=== PATIENT | female | born 1930 | race Caucasian/White ===

== ENCOUNTER 2017-05-03 19:03 | Observation (INO) | payer OTHER ==
[2017-05-03] MEDS ORDERED: NS 500 ML IV ONE (19:26)
--- NOTE | 2017-05-03 19:26 | CPEKG ---
Heart Rate: 145 RR Interval: 414 QRSD Interval: 74 QT Interval: 316 QTC Interval: 491 QRS Elmer: 88 T Wave Elmer: 23 EKG Severity - ABNORMAL ECG - EKG Impression: ATRIAL FIBRILLATION WITH RAPID V-RATE EKG Impression: BORDERLINE RIGHT AXIS DEVIATION EKG Impression: ST DEPRESSION, PROBABLY RATE RELATED Electronically Signed By: Valerie Lane 03-May-2017 20:36:44
[2017-05-03 19:36] LABS: % IMMATURE GRANULYOCYTES 0.3 % (0.0-1.1); ABSOLUTE IMMATURE GRANULOCYTES 0.02 10^3/uL (0.00-0.10); ADD DIFF? NO; ADD MORPH? NO; ADD SCAN? NO; ATYPICAL LYMPHOCYTE FLAG 10 (0-99); FRAGMENT RBC FLAG 0 (0-99); HEMATOCRIT 44.9 % (38.0-47.0); HEMOGLOBIN 15.7 g/dL (12.6-16.3); LEFT SHIFT FLG 0 (0-99); LIPEMIA HEMOLYSIS FLAG 90 (0-99); MEAN CELL VOLUME 88.7 fL (81.5-99.8); MEAN PLATELET VOLUME 9.1 fL (8.7-11.7); PLATELET CLUMPS FLAG 0 (0-99); PLATELET COUNT 261 10^3/uL (150-400); RED BLOOD CELL COUNT 5.06 10^6/uL (4.18-5.33); RED CELL DISTRIBUTION WIDTH 12.7 % (11.5-15.2)
[2017-05-03 19:42] LABS: INR 0.96 (0.83-1.16); PROTIME(PATIENT) 12.7 SEC (12.0-15.0)
[2017-05-03 19:43] LABS: APTT 26.5 SEC (23.0-38.0)
[2017-05-03] MEDS: DILTIAZEM 125 MG in D5W 125 ML IV ONE ×2 (20:08→20:20)
[2017-05-03 20:12] LABS: ANION GAP 14 mEq/L (8-16); CALCIUM 9.7 mg/dL (8.5-10.4); CARBON DIOXIDE 28 mEq/l (22-31); CHLORIDE 90 mEq/L (97-110); CREATININE 0.7 mg/dL (0.6-1.0); GLOMERULAR FILTRATION RATE > 60; GLUCOSE 127 mg/dL (70-100); SODIUM 132 mEq/L (134-144)
--- NOTE | 2017-05-03 20:16 | EDPHY ---
H & P Time Seen by Provider: 05/03/17 19:26 HPI/ROS: HPI Concerned about fast heart rate. 36-year-old female by private vehicle with her . This patient reports that before eating dinner tonight at around 6:00 p.m. she was not feeling well. She describes this as being low on energy and feeling very fatigued. She denied any palpitations at this time. She reports that she thought her blood pressure was high. She went to take her blood pressure and it was not that high but she noticed that her pulse was high. She came in because of concern about a fast heart rate. She denies any onset time of palpitations, chest pain or a sensation of her heart beating fast. ROS: Constitutional: No fever, no chills. As above. Eyes: No discharge. No changes in vision. ENT: No sore throat. No nasal congestion or rhinorrhea. Respiratory: No cough. No shortness of breath. Cardiac: No chest pain, no palpitations. Gastrointestinal: No abdominal pain, no vomiting, no diarrhea. Genitourinary: No hematuria. No dysuria or increased frequency with urination. Musculoskeletal: No back pain. No neck pain. No myalgias or arthralgias. Skin: No rashes. Neurological: No headache. No focal weakness or altered sensation. Past medical history: Hypertension, hypothyroid, cataracts. Takes metoprolol for her hypertension. Social history: Nonsmoker. Here with her . No alcohol. Physical Exam: General Appearance: Alert, mildly anxious. This patient is responding to questions appropriately and in full sentences. This patient appears well- hydrated and well-nourished. Eyes: Pupils equal and round no pallor or injection. No lid edema, erythema or injection. Respiratory: There are no retractions, lungs are clear to auscultation with good air movement bilaterally. Cardiovascular: Irregular, irregular tachycardia. No murmur appreciated. Gastrointestinal: Abdomen is soft and nontender, no masses, bowel sounds normal. No focal tenderness at McBurney's point. No Tesfaye sign. Neurological: Motor sensory function is grossly intact. Cranial nerves are normal. Gait is normal. Skin: Warm and dry, no rashes. Musculoskeletal: Neck is supple and nontender. Extremities are symmetrical. All joints range without pain or impingement. Psychiatric: No agitation. No depression. Database: EKG: EKG time is 7:24 p.m.; EKG shows a narrow complex atrial fibrillation with rapid ventricular rate. Rate average is 145. Borderline right axis deviation. No ST, T-wave changes indicative of acute ischemic or injury pattern. Interpreted by me. EKG time is 8:47 p.m.; EKG shows a narrow complex atrial fibrillation with ventricular rate of 82. No ST, T-wave changes indicative of ischemic or injury pattern. Interpreted by me. Imaging: Chest x-ray AP portable; the cardiac mediastinal silhouette is unremarkable. No evidence of infiltrate or pneumothorax. No acute cardiopulmonary disease process noted. Interpreted by me. Procedures: Emergency department course: IV was placed. She was placed on a monitoring analyst. She was initially given 500 cc of IV normal saline over an hour. Vital signs were reviewed. EKG obtained and reviewed by myself. She was started on a diltiazem loading drip at 2.5 milligrams/minute for rate control. 8:30 p.m., the patient got to 30 mg of IV diltiazem loading drip her heart rate came down to the upper 70s low 80s. She was transition to a steady state drip at 15 mg an hour. 8:50 p.m., blood pressure 117/54, EKG repeated, monitoring analyst shows a irregular narrow complex rhythm ventricular rate of 88. 9:15 p.m., spoke with on-call hospitalist Dr. Michelle Hernandez. She accepts patient for admission. Discussed results of emergency department workup with the patient and her . Discussed admission. All of their questions were answered. The patient was admitted in stable and improved condition to the hospitalist service. Differential Diagnosis: The differential diagnosis on this patient includes but is not limited to atrial fibrillation with RVR. Acute coronary syndrome, pulmonary embolism unlikely. This represents a partial list of diagnoses considered. These considerations are based on history, physical exam, past history, reassessment and diagnostic testing. Smoking Status: Never smoked Constitutional: Initial Vital Signs Temperature (C) 36.6 C 05/03/17 19:11 Heart Rate 138 H 05/03/17 19:11 Respiratory Rate 16 05/03/17 19:11 Blood Pressure 174/123 H 05/03/17 19:11 O2 Sat (%) 94 05/03/17 19:11 O2 Delivery Mode Nasal Cannula O2 (L/minute) 2 Allergies/Adverse Reactions: Sulfa (Sulfonamide Antibiotics) Allergy (Intermediate, Verified 05/03/17 19:14) Rash Home Medications: Medication Instructions Recorded Acetaminophen [Tylenol ES 500 mg 500 mg PO DAILY 05/03/17 (*)] Ascorbic Acid [Vitamin C 500 mg 1,000 mg PO DAILY 05/03/17 (*)] Aspirin [Aspirin 325 mg (*)] 325 mg PO DAILY 05/03/17 Cholecalciferol Vit D3 [Vitamin D3 1,000 units PO DAILY 05/03/17 (*)] Doxylamine Succinate [Unisom] 12.5 mg PO HS 05/03/17 Herbals/Supplements -Info Only 1 ea PO DAILY 05/03/17 Metoprolol Tartrate [Lopressor 50 50 mg PO DAILY 05/03/17 mg (*)] Nitrofurantoin Monohyd/M-Cryst 100 mg PO BID 05/03/17 [Nitrofurantoin [place]-Macrocrystal] Valsartan [Diovan (*)] 320 mg PO BID@07,1730 05/03/17 amLODIPine BESYLATE [Norvasc 5 mg 5 mg PO DAILY 05/03/17 (*)] Medical Decision Making - Diagnostics Imaging Results: Imaging Impressions Chest X-Ray 05/03/17 19:27 Impression: 1. Pulmonary venous congestion. 2. Bibasilar airspace opacities, likely atelectasis. 3. Left retrocardiac soft tissue density, likely focal eventration of the left hemidiaphragm. - Data Points Laboratory Results: Laboratory Results 05/03/17 19:27 05/03/17 19:27 Medications Given: Diltiazem HCl (Cardizem Immediate Release) 60 mg PO Q6HRS HARINDER Stop: 10/31/17 00:00 Last Admin: 05/04/17 06:05 Dose: 60 mg Discontinued Medications Sodium Chloride (Ns) 500 mls @ 1,000 mls/hr IV EDNOW ONE PRN Reason: Protocol Stop: 05/03/17 19:55 Last Admin: 05/03/17 19:34 Dose: 500 mls Diltiazem HCl 125 mg/ Dextrose 125 mls @ 0 mls/hr IV EDNOW ONE; As Directed PRN Reason: Protocol Stop: 05/03/17 19:44 Last Admin: 05/03/17 20:20 Dose: 125 mls Departure - Departure Disposition: [facility] Inpatient Acute Clinical Impression: Atrial fibrillation with RVR Condition: Fair
[2017-05-03 20:24] LABS: CREATINE KINASE-MB FRACTION 0.81 ng/mL (0.00-3.19); TROPONIN I < 0.012 ng/mL (0.000-0.034)
[2017-05-03] MEDS ORDERED: ACETAMINOPHEN 325 MG TAB PO PRN (22:21)
[2017-05-03] MEDS ORDERED: ONDANSETRON 4 MG/2 ML VIAL IVP PRN (22:21)
[2017-05-03] MEDS ORDERED: ONDANSETRON DISINTEGRATING 4 MG TAB PO PRN (22:21)
--- NOTE | 2017-05-03 23:40 | PDGENHP ---
History and Physical - Chief Complaint Fatigue - History of Present Illness 86 yo F w/ hypothyroid and HTN presents with fatigue. She felt fatigued today and assumed her BP was low. She checked her VS at home and noted normal BP but HR in the 140 range. As a result she came to the ED. Of note, she is currently being treated for a recurrent UTI with Macrobid BID, of which she has 3 tabs left. She otherwise denies recent illness, chest pain, shortness of breath, and leg swelling. She denies prior history of arrhythmias, cardiac disease, or stroke/TIA. History Information - Allergies/Home Medication List Allergies/Adverse Reactions: Sulfa (Sulfonamide Antibiotics) Allergy (Intermediate, Verified 05/03/17 19:14) Rash Home Medications: Acetaminophen [Tylenol ES 500 mg (*)] 500 mg PO DAILY 05/03/17 [Last Taken 05/03] Ascorbic Acid [Vitamin C 500 mg (*)] 1,000 mg PO DAILY 05/03/17 [Last Taken ] Aspirin [Aspirin 325 mg (*)] 325 mg PO DAILY 05/03/17 [Last Taken 05/03/17] Cholecalciferol Vit D3 [Vitamin D3 (*)] 1,000 units PO DAILY 05/03/17 [Last Taken 05/03/17] Doxylamine Succinate [Unisom] 12.5 mg PO HS 05/03/17 [Last Taken 05/02/17] Herbals/Supplements -Info Only 1 ea PO DAILY 05/03/17 [Last Taken Unknown] Metoprolol Tartrate [Lopressor 50 mg (*)] 50 mg PO DAILY 05/03/17 [Last Taken ] Nitrofurantoin Monohyd/M-Cryst [Nitrofurantoin [place]-Macrocrystal] 100 mg PO BID 05/03/17 [Last Taken 05/03/17 17:30] Valsartan [Diovan (*)] 320 mg PO BID@07,1730 05/03/17 [Last Taken 05/03/17 17:30 ] amLODIPine BESYLATE [Norvasc 5 mg (*)] 5 mg PO DAILY 05/03/17 [Last Taken ] I have personally reviewed and updated: family history, medical history - Past Medical History hypertension Additional medical history: Hypothyroid - Family History Positive for: cancer - Social History Smoking Status: Never smoked Review of Systems Review of Systems: ROS: 10pt was reviewed & negative except for what was stated in HPI & below Physical Exam Physical Exam: Temp Pulse Resp BP Pulse Ox 36.7 C 80 17 124/73 H 92 05/03/17 22:18 05/03/17 21:00 05/03/17 22:18 05/03/17 22:18 05/03/17 22:18 O2 (L/minute) 2 Constitutional: no apparent distress, appears nourished Eyes: PERRL, EOMI Ears, Nose, Mouth, Throat: moist mucous membranes, no oral mucosal ulcers Cardiovascular: no murmur, rub, or gallop, irregularly irregular Respiratory: no respiratory distress, no rales or rhonchi Gastrointestinal: normoactive bowel sounds, soft, non-tender abdomen Skin: warm, normal color Musculoskeletal: full muscle strength, no muscle tenderness Neurologic: AAOx3, CN II-XII Intact Psychiatric: interacting appropriately, not anxious Lab Data & Imaging Review 05/03/17 19:27 05/03/17 19:27 WBC 7.53 10^3/uL (3.80-9.50) 05/03/17 19:27 RBC 5.06 10^6/uL (4.18-5.33) 05/03/17 19:27 Hgb 15.7 g/dL (12.6-16.3) 05/03/17 19:27 Hct 44.9 % (38.0-47.0) 05/03/17 19:27 MCV 88.7 fL (81.5-99.8) 05/03/17 19:27 MCH 31.0 pg (27.9-34.1) 05/03/17 19:27 MCHC 35.0 g/dL (32.4-36.7) 05/03/17 19:27 RDW 12.7 % (11.5-15.2) 05/03/17 19:27 Plt Count 261 10^3/uL (150-400) 05/03/17 19:27 MPV 9.1 fL (8.7-11.7) 05/03/17 19:27 Neut % (Auto) 59.7 % (39.3-74.2) 05/03/17 19:27 Lymph % (Auto) 25.6 % (15.0-45.0) 05/03/17 19: Atkinson % (Auto) 10.8 % (4.5-13.0) 05/03/17 19: Eos % (Auto) 3.1 % (0.6-7.6) 05/03/17 19: Baso % (Auto) 0.5 % (0.3-1.7) 05/03/17 19: Nucleat RBC Rel Count 0.0 % (0.0-0.2) 05/03/17 19: Absolute Neuts (auto) 4.50 10^3/uL (1.70-6.50) 05/03/17 19: Absolute Lymphs (auto) 1.93 10^3/uL (1.00-3.00) 05/03/17 19: Absolute Monos (auto) 0.81 10^3/uL (0.30-0.80) H 05/03/17 19: Absolute Eos (auto) 0.23 10^3/uL (0.03-0.40) 05/03/17 19: Absolute Basos (auto) 0.04 10^3/uL (0.02-0.10) 05/03/17 19: Absolute Nucleated RBC 0.00 10^3/uL (0-0.01) 05/03/17 19: Immature Gran % 0.3 % (0.0-1.1) 05/03/17 19: Immature Gran # 0.02 10^3/uL (0.00-0.10) 05/03/17 19: PT 12.7 SEC (12.0-15.0) 05/03/17 19: INR 0.96 (0.83-1.16) 05/03/17 19: APTT 26.5 SEC (23.0-38.0) 05/03/17 19:27 Sodium 132 mEq/L (134-144) L 05/03/17 19:27 Potassium 4.0 mEq/L (3.5-5.2) 05/03/17 19: Chloride 90 mEq/L (97-110) L 05/03/17 19: Carbon Dioxide 28 mEq/l (22-31) 05/03/17 19:27 Anion Gap 14 mEq/L (8-16) 05/03/17 19: BUN 15 mg/dL (7-23) 05/03/17 19: Creatinine 0.7 mg/dL (0.6-1.0) 05/03/17 19:27 Estimated GFR > 60 05/03/17 19: Glucose 127 mg/dL (70-100) H 05/03/17 19: Calcium 9.7 mg/dL (8.5-10.4) 05/03/17 19: Creatine Kinase 49 IU/L (0-156) 05/03/17 19: CK-MB (CK-2) Fraction 0.81 ng/mL (0.00-3.19) 05/03/17 19: Troponin I < 0.012 ng/mL (0.000-0.034) 05/03/17 19: TSH 1.670 uIU/mL (0.465-4.680) 05/03/17 19:17 Visualized and Interpreted EKG results: Yes EKG additional interpertation: Afib w/ RVR Assessment & Plan Assessment: 86 yo F w/ HTN and hypothyroid presents with new afib w/ RVR in the setting of treatment for a UTI. Plan: 1. Afib w/ RVR - New diagnosis, perhaps triggered by UTI as no other precipitating factors clear from HPI. [id number] 4 for age, HTN, and sex, so indicated for anticoagulation. At the time of my evaluation patient was rate controlled and asymptomatic on diltiazem drip. TSH WNL. - Will order diltiazem 60 mg PO q6h and discontinue home metoprolol noting improved rate control with CCB; transition to XR as able - Start Rivaroxaban 20 mg qD (preferred per [employer] formulary) and discontinue home ASA - Monitor on telemetry - No clinical signs of heart failure, will not order TTE 2. HTN - On Losartan, metoprolol, and amlodipine as an outpatient. Will d/c metoprolol and amlodipine and start diltiazem, continue losartan. 3. Hypothyroid - Continue LTX Diet - Regular Code - Full Ppx - Rivaroxaban Dispo - Admit to observation status
[2017-05-03] MEDS: DILTIAZEM 60 MG TAB PO SCH (23:41)
[2017-05-04 05:15] LABS: % IMMATURE GRANULYOCYTES 0.3 % (0.0-1.1); ABSOLUTE IMMATURE GRANULOCYTES 0.02 10^3/uL (0.00-0.10); ADD DIFF? NO; ADD MORPH? NO; ADD SCAN? NO; ATYPICAL LYMPHOCYTE FLAG 20 (0-99); FRAGMENT RBC FLAG 0 (0-99); HEMATOCRIT 40.9 % (38.0-47.0); LEFT SHIFT FLG 0 (0-99); LIPEMIA HEMOLYSIS FLAG 90 (0-99); MEAN CELL HEMOGLOBIN 30.6 pg (27.9-34.1); MEAN CELL HEMOGLOBIN CONCENTR. 34.2 g/dL (32.4-36.7); MEAN CELL VOLUME 89.5 fL (81.5-99.8); MEAN PLATELET VOLUME 9.6 fL (8.7-11.7); PLATELET CLUMPS FLAG 0 (0-99); PLATELET COUNT 244 10^3/uL (150-400); RED BLOOD CELL COUNT 4.57 10^6/uL (4.18-5.33); RED CELL DISTRIBUTION WIDTH 12.6 % (11.5-15.2)
[2017-05-04 05:27] LABS: ANION GAP 13 mEq/L (8-16); CALCIUM 8.9 mg/dL (8.5-10.4); CARBON DIOXIDE 29 mEq/l (22-31); CHLORIDE 97 mEq/L (97-110); CREATININE 0.6 mg/dL (0.6-1.0); GLOMERULAR FILTRATION RATE > 60; GLUCOSE 91 mg/dL (70-100); MAGNESIUM 2.1 mg/dL (1.6-2.3); POTASSIUM 4.4 mEq/L (3.5-5.2); SODIUM 139 mEq/L (134-144)
[2017-05-04] MEDS: DILTIAZEM 60 MG TAB PO SCH ×2 (06:05→12:00)
[2017-05-04] MEDS ORDERED: VALSARTAN 160 MG TAB PO SCH (07:00)
[2017-05-04 07:32] VITALS: RESP 17; TEMP 98.4; O2SAT 93
[2017-05-04] MEDS ORDERED: NITROFURANTOIN MACROBID 100 MG CAP PO SCH (09:00)
[2017-05-04] MEDS ORDERED: ASCORBIC ACID 500 MG TAB PO SCH (09:00)
[2017-05-04] MEDS ORDERED: CHOLECALCIFEROL VIT D3 1,000 UNITS TAB PO SCH (09:00)
[2017-05-04] MEDS ORDERED: RIVAROXABAN 20 MG TAB PO SCH (09:00)
--- NOTE | 2017-05-04 10:24 | PDDCSUM ---
Discharge Summary Discharge Summary: HPI/Hospital Course 86 yo female admitted with new onset Afib. Etiology unclear. Possibly due to recent UTI. Started on Dilt drip and self converted. NSR upon discharge. Meds have been modified. She has been started on Diltiazem 60mg PO Q6hrs and Xarelto 20mg daily. Metoprolol, Amlodipine, and Valsartan have been stopped. She may benefit from ARB but given concern for BP drop, will hold for now. She will f/u with her Furnace Tender as well as with her PCP. We discussed starting Xarelto and pros and cons including risks and she is in agreement with starting it and accepts all risks. DDX: -New onset Afib. Now in SR -HTN -Hypothyroidism. well controlled -Recurrent UTI, complete Macrobid as previously prescribed Exam: VSS NAD AAOX3 PERRLA, EOMI NO JVD RRR, no edema CTA B S/nT/nD no anxiety. d/c Meds: per above. f/u: per above total time spent on discharge is 37 minutes
--- NOTE | 2017-05-04 11:06 | ASMTCMCOM ---
CM Note CM Note Notes: Chart reviewed, per pt RN no needs indentified. CM available should needs arise. Date Signed: 05/04/2017 11:06 AM Electronically Signed By:Eliza Flower RN
[2017-05-04 11:31] VITALS: BP 135/77; PULSE 72
--- NOTE | 2017-05-04 12:16 | CPEKG ---
Heart Rate: 82 RR Interval: 732 QRSD Interval: 80 QT Interval: 380 QTC Interval: 444 QRS Roark: 74 T Wave Roark: 32 EKG Severity - ABNORMAL ECG - EKG Impression: ATRIAL FIBRILLATION, V-RATE 66-106 Electronically Signed For: Lin Cassidy 04-May-2017 12:17:05
--- NOTE | 2017-05-05 09:09 | ASDISCHSUM ---
Discharge Information Plan Status:Home with No Needs Medically Cleared to Leave:05/04/2017 Discharge Date:05/04/2017 12:17 PM CM D/C Disposition:Home, Routine, Self-Care ADT D/C Disposition:Home, Routine, Self-Care Projected Discharge Date:05/04/2017 12:17 PM Transportation at D/C:Family Discharge Delay Reason: Follow-Up Date:05/04/2017 12:17 PM Discharge Slot: Final Diagnosis: Placement Information Patient Contact Information Contact Name:SUDARSHAN Relationship: Address:[address] Work Phone: City:[facility] Phone: [facility]/Zip Code:[place] [address] Email: Financial Information Financial Class:Medicare Advantage Plans Primary Plan Desc:[employer] [facility] [employer] Primary Plan Number:[id number] Secondary Plan Desc: Secondary Plan Number: Assessment Information BC CM Progress Note CM Note CM Note Notes: Chart reviewed, per pt RN no needs indentified. CM available should needs arise. Date Signed: 05/04/2017 11:06 AM Electronically Signed By:Eliza Flower RN Intervention Information Intervention Type:*Incorrect Registration Date of Service:05/03/2017 10:54 AM Patient Type:Observation Staff Member:ERMELINDA Cartwright Susan Hours: Discipline: Severity: Comment:
== END 2017-05-04 12:17 | disposition home or self-care (01) ==
LOC: INTOOBSV 21:20 → F2W 21:55
PROVIDERS: ADMIT Internal Medicine; ATTEND Internal Medicine
PROC: 3E033RZ Introduction of Antiarrhythmic into Peripheral Vein, Percutaneous Approach (ICD-10-PCS; principal; 2017-05-03)
DX: I48.91 Unspecified atrial fibrillation (principal); N39.0 Urinary tract infection, site not specified; I10 Essential (primary) hypertension; E03.9 Hypothyroidism, unspecified; Z87.440 Personal history of urinary (tract) infections
CPT/HCPCS: 71010; 93005; 96365; 96366; 99285; G0378

== ENCOUNTER → 2017-08-02 | Outpatient (CLI) | payer OTHER | LOC: FIMAGING 11:40 | PROVIDERS: ATTEND Family Medicine | DX: M50.21 Other cervical disc displacement, high cervical region (principal); M48.02 Spinal stenosis, cervical region; M47.812 Spondylosis without myelopathy or radiculopathy, cervical region; M50.23 Other cervical disc displacement, cervicothoracic region; M51.24 Other intervertebral disc displacement, thoracic region ==